=== PATIENT | female | born 1945 | race American Indian/Alaskan Native ===

== ENCOUNTER 2021-05-04 10:46 | Emergency (ER) | payer OTHER ==
[~2021-05-04] VITALS: Ht 154.9 cm; Wt 76.8 kg
[2021-05-04 11:17] VITALS: BP 175/63
== END 2021-05-04 12:55 | disposition home or self-care (01) ==
LOC: ER 10:48
DX: R07.89 Other chest pain (principal); R10.12 Left upper quadrant pain; R06.02 Shortness of breath
CPT/HCPCS: 71101; 99283

== ENCOUNTER 2021-05-07 10:09 | Emergency (ER) | payer OTHER ==
[~2021-05-07] VITALS: Ht 154.9 cm; Wt 76.6 kg
[2021-05-07 12:08] VITALS: BP 168/79
== END 2021-05-07 12:09 | disposition home or self-care (01) ==
LOC: ER 10:09
DX: R07.81 Pleurodynia (principal)
CPT/HCPCS: 71046; 93005; 99283